=== PATIENT | female | born 1970 | race Caucasian/White ===

== ENCOUNTER → 2017-05-07 | Outpatient (CLI) | payer BC ==
[2017-05-07 18:57] LABS: Basophils # (A) 0.1 k/uL (0-0.2); Basophils % (A) 1 %; CHCM 34.5; Eosinophils # (A) 0.2 k/uL (0-0.7); Eosinophils % (A) 2 %; HCT 41.7 % (34.0-46.0); HDW 2.48; HGB 14.4 gm/dL (11.4-16.0); Luc # (Auto) 0.13; Luc % (Auto) 2; Lymphocytes % (A) 23 %; MCH 34.2 pg (25.0-35.0); MCHC 34.5 g/dL (31.0-37.0); MCV 99.2 fL (80.0-100.0); Mean Platelet Volume 9.5; Monocytes # (A) 0.5 k/uL (0-1.0); Monocytes % (A) 6 %; Neutrophils # (A) 5.6 k/uL (1.3-7.7); Neutrophils % (A) 66 %; RDW 13.1 % (11.5-15.5); WBC 8.4 k/uL (3.8-10.6); WBC (Perox) 8.15
[2017-05-07 19:11] LABS: ALT 28 U/L (9-52); AST 17 U/L (14-36); Alkaline Phosphatase 67 U/L (38-126); Anion Gap 10 mmol/L; Blood Urea Nitrogen 10 mg/dL (7-17); Calcium 9.5 mg/dL (8.4-10.2); Carbon Dioxide 25 mmol/L (22-30); Chloride 104 mmol/L (98-107); Cholesterol 226 mg/dL (<200); Glucose 85 mg/dL (74-99); HDL Cholesterol 53 mg/dL (40-60); Non-African American GFR(MDRD) >60 (>60 ml/min/1.73 sqM); Potassium 4.3 mmol/L (3.5-5.1); Sodium 139 mmol/L (137-145); Total Bilirubin 0.8 mg/dL (0.2-1.3); Total Protein 6.9 g/dL (6.3-8.2); Triglycerides 300 mg/dL (<150)
[2017-05-07 22:46] LABS: Hemoglobin A1C 5.3 % (4.2-6.1)
== END ==
LOC: MMGSC 08:58
PROVIDERS: ATTEND Family Medicine
DX: Z00.00 Encounter for general adult medical examination without abnormal findings (principal); Z83.3 Family history of diabetes mellitus
CPT/HCPCS: 36415; 80053; 80061; 82306; 83036; 84439; 84443; 85025

== ENCOUNTER → 2017-08-23 | Outpatient (CLI) | payer BC | LOC: MMGSC 10:27 | PROVIDERS: ATTEND Family Medicine | DX: E03.9 Hypothyroidism, unspecified (principal) | CPT/HCPCS: 36415; 84439; 84443 ==

== ENCOUNTER → 2020-09-01 | Outpatient (CLI) | payer BC | END | disposition home or self-care (01) | LOC: LABWHC1 15:07 | PROVIDERS: ATTEND Family Medicine | DX: Z20.828 Contact with and (suspected) exposure to other viral communicable diseases (principal) | CPT/HCPCS: U0003; C9803 ==

== ENCOUNTER 2025-04-13 07:45 | Observation (INO) | payer BC ==
--- NOTE | 2025-04-13 08:10 | ED ---
General Adult HPI - General Chief complaint: Chest Pain Stated complaint: Chest pain/SOB Time Seen by Provider: 04/13/25 07:53 Source: patient Mode of arrival: ambulatory Limitations: no limitations - History of Present Illness Initial comments: Dictation was produced using [employer] dictation software. please excuse any grammatical, word or spelling errors. Chief Complaint: 55-year-old female presents emergency department chest pain History of Present Illness: Patient 55-year-old female no significant comorbidities presents emergency department with pressure-like sensation to the left anterior chest that radiates down the left upper extremity. Denies any associate shortness of breath. Pain is not worse with deep respiration. No history of DVT or blood clots., Primary care doctor felt that her symptoms were secondary to anxiety. Patient [place] any cardiac history. Denies any family history of cardiac history. No tobacco use. Denies any history of hypertension diabetes or high cholesterol. The ROS documented in this emergency department record has been reviewed and confirmed by me. Those systems with pertinent positive or negative responses have been documented in the HPI. All other systems are other negative and/or noncontributory. - Related Data Home Medications Medication Instructions Recorded Confirmed Multivitamins, Thera [Multivitamin 1 tab PO DAILY 04/13/25 04/13/25 (formulary)] Thyroid,Pork [Thyroid] 15 mg PO DAILY 04/13/25 04/13/25 estradioL [Aminata (Twice Weekly) 1 patch TRANSDERM MOTH 04/13/25 04/13/25 0.1 mg Patch] hydrOXYzine HCL [Atarax] 25 mg PO TID 04/13/25 04/13/25 Allergies Allergy/AdvReac Type Severity Reaction Status Date / Time hydromorphone [From Dilaudid] Allergy Dyspnea/Low Verified 04/13/25 09:52 BP morphine AdvReac Nausea & Verified 04/13/25 09:52 Vomiting progesterone AdvReac Dizzy/Heada Verified 04/13/25 09:53 edward Review of Systems ROS Statement: Those systems with pertinent positive or pertinent negative responses have been documented in the HPI. ROS Other: All systems not noted in ROS Statement are negative. Past Medical History Past Medical History: No Reported History Past Surgical History: Hysterectomy, Orthopedic Surgery Past Psychological History: Anxiety Smoking Status: Never smoker Past Alcohol Use History: Occasional Past Drug Use History: None Reported General Exam - General Exam Comments Initial Comments: PHYSICAL EXAM: General Impression: Alert and oriented x3, not in acute distress HEENT: Normocephalic atraumatic, extra-ocular movements intact, pupils equal and reactive to light bilaterally, mucous membranes moist. Cardiovascular: Heart regular rate and rhythm Chest: Able to complete full sentences, no retractions, no tachypnea Abdomen: abdomen soft, non-tender, non-distended, no organomegaly Musculoskeletal: Pulses present and equal in all extremities, no peripheral edema Motor: no focal deficits noted Neurological: CN II-XII grossly intact, no focal motor or sensory deficits noted Skin: Intact with no visualized rashes Psych: Normal affect and mood Limitations: no limitations Course Vital Signs 04/13/25 04/13/25 04/13/25 07:48 08:18 09:23 Temperature 98.8 F Pulse Rate 84 77 78 Pulse Rate [ 84 Radiologist Diagnostic ] Respiratory 18 18 20 Rate Blood Pressure 162/89 148/96 130/68 O2 Sat by Pulse 97 95 97 Oximetry EKG Findings - EKG Comments: EKG Findings:: My EKG interpretation: Ventricular rate 86, sinus rhythm, WI 175, QRS 92, QTc 408. No WI prolongation, no QTC prolongation, no ST or T-wave changes noted. EKGOverall, this EKG is unremarkable Medical Decision Making - Medical Decision Making Was pt. sent in by a medical professional or institution (, PA, NEWSPAPER CARRIER, urgent care, hospital, or jail...) When possible be specific @ -No Did you speak to anyone other than the patient for history (EMS, parent, family, police, friend...)? What history was obtained from this source @ -No Did you review nursing and triage notes (agree or disagree)? Why? @ -I reviewed and agree with nursing and triage notes Were old charts reviewed (outside hosp., previous admission, EMS record, old EKG, old radiological studies, urgent care reports/EKG's, jail records)? Report findings @ -No old charts were reviewed Differential Diagnosis (chest pain, altered mental status, abdominal pain women, abdominal pain men, vaginal bleeding, musculoskeletal, weakness, fever, dyspnea, syncope, headache, dizziness, GI bleed, back pain, seizure, CVA, palpatations, mental health)? @ -Differential Chest Pain: Stable Angina, Unstable Angina, STEMI, NSTEMI Aortic Dissection, Pneumothorax, Musculoskeletal, Esophageal Spasm GERD, Cholecystitis, Pancreatitis, Zoster, this is not meant to be an all-inclusive list. EKG interpreted by me (3pts min.). @ -See above X-rays interpreted by me (1pt min.). @ -Chest x-ray is nonacute CT interpreted by me (1pt min.). @ -None done U/S interpreted by me (1pt. min.). @ -None done What testing was considered but not performed or refused? (CT, X-rays, U/S, labs)? Why? @ -None What meds were considered but not given or refused? Why? @ -None Was smoking cessation discussed for >3mins.? @ -No Were there social determinants of health that impacted care today? How? (Homelessness, low income, unemployed, alcoholism, drug addiction, transpo rtation, low edu. Level, literacy, decrease access to med. care, fdc, rehab)? @ -No Was there de-escalation of care discussed even if they declined (Discuss DNR or withdrawal of care, Hospice)? DNR status @ -No What co-morbidities impacted this encounter? (DM, HTN, Smoking, COPD, CAD, Cancer, CVA, ARF, Chemo, Hep., AIDS, mental health diagnosis, sleep apnea, morbid obesity)? @ -None Was patient admitted / discharged? Hospital course, mention meds given and route, prescriptions, significant lab abnormalities, going to OR and other pertinent info. @ -55-year-old female atypical chest pain typical features. Vital signs upon arrival are within acceptable limits. Laboratory evaluation obtained. Troponin negative. Rest of labs unremarkable. EKG is negative. Patient does have significant risk factors will be admitted observation cardiology consultation given aspirin nitroglycerin. Case discussed with hospitalist for admission Did you discuss the management of the patient with other professionals (professionals i.e. , PA, NEWSPAPER CARRIER, lab, RT, psych nurse, oncology social work, revenue officer, teacher, sergeant of officers, case advocate)? Give summary @ -See above Was critical care preformed (if so, how long)? @ -No Undiagnosed new problem with uncertain prognosis? @ -No Drug Therapy requiring intensive monitoring for toxicity (Heparin, Nitro, Insulin, Cardizem)? @ -No Were any procedures done? @ -No Diagnosis/symptom? Acute, or Chronic, or Acute on Chronic? Uncomplicated (without systemic symptoms) or Complicated (systemic symptoms)? @ -Chest pain Side effects of treatment? @ -No Exacerbation, Progression, or Severe Exacerbation? @ -No Poses a threat to life or bodily function? How? (Chest pain, USA, MS, pneumonia, PE, COPD, DKA, ARF, appy, cholecystitis, CVA, Diverticulitis, Homicidal, Suicidal, threat to staff... and all critical care pts) @ -Yes - Lab Data Result diagrams: 04/13/25 08:26 04/13/25 08:26 Lab Results 04/13/25 04/13/25 04/13/25 Range/Units 08:26 08:26 08:26 WBC 7.17 (4.50-10.00) 10*3/uL RBC 4.23 (4.10-5.20) 10*6/uL Hgb 14.2 (12.0-15.0) g/dL Hct 39.6 (37.2-46.3) % MCV 93.6 (80.0-97.0) fL MCH 33.6 H (27.0-32.0) pg MCHC 35.9 (32.0-37.0) g/dL Plt Count 304 (140-440) 10*3/uL MPV 9.4 L (9.5-12.2) fL Immature Gran % (Auto) 0.1 % Neutrophils % 58.0 % Lymphocytes % 31.0 % Monocytes % 8.1 % Eosinophils % 1.8 % Basophils % 1.0 % Immature Gran # 0.01 (0.00-0.04) 10*3/uL Neutrophils # 4.16 (1.80-7.70) 10*3/uL Lymphocytes # 2.22 (0.90-5.00) 10*3/uL Monocytes # 0.58 (0.20-1.00) 10*3/uL Eosinophils # 0.13 (0.04-0.35) 10*3/uL Basophils # 0.07 (0.00-0.10) 10*3/uL PT 11.4 (10.0-12.5) sec INR 1.0 (<1.2) APTT 24.0 (22.0-30.0) sec D-Dimer 0.21 (<0.60) mg/L FEU Sodium 137 (137-145) mmol/L Potassium 3.8 (3.5-5.1) mmol/L Chloride 105 (98-107) mmol/L Carbon Dioxide 25 (22-30) mmol/L Anion Gap 7 mmol/L BUN 11 (7-17) mg/dL Creatinine 0.53 (0.52-1.04) mg/dL Est GFR (CKD-EPI)AfAm >90 (>60 ml/min/1.73 sqM) Est GFR (CKD-EPI)NonAf >90 (>60 ml/min/1.73 sqM) Glucose 101 H (74-99) mg/dL Calcium 9.6 (8.4-10.2) mg/dL Magnesium 1.8 (1.6-2.3) mg/dL Total Bilirubin 1.2 (0.2-1.3) mg/dL AST 25 (14-36) U/L ALT 28 (4-34) U/L Alkaline Phosphatase 66 (38-126) U/L Troponin I (0.000-0.034) ng/mL Total Protein 7.0 (6.3-8.2) g/dL Albumin 4.5 (3.5-5.0) g/dL 04/13/25 Range/Units 08:26 WBC (4.50-10.00) 10*3/uL RBC (4.10-5.20) 10*6/uL Hgb (12.0-15.0) g/dL Hct (37.2-46.3) % MCV (80.0-97.0) fL MCH (27.0-32.0) pg MCHC (32.0-37.0) g/dL Plt Count (140-440) 10*3/uL MPV (9.5-12.2) fL Immature Gran % (Auto) % Neutrophils % % Lymphocytes % % Monocytes % % Eosinophils % % Basophils % % Immature Gran # (0.00-0.04) 10*3/uL Neutrophils # (1.80-7.70) 10*3/uL Lymphocytes # (0.90-5.00) 10*3/uL Monocytes # (0.20-1.00) 10*3/uL Eosinophils # (0.04-0.35) 10*3/uL Basophils # (0.00-0.10) 10*3/uL PT (10.0-12.5) sec INR (<1.2) APTT (22.0-30.0) sec D-Dimer (<0.60) mg/L FEU Sodium (137-145) mmol/L Potassium (3.5-5.1) mmol/L Chloride (98-107) mmol/L Carbon Dioxide (22-30) mmol/L Anion Gap mmol/L BUN (7-17) mg/dL Creatinine (0.52-1.04) mg/dL Est GFR (CKD-EPI)AfAm (>60 ml/min/1.73 sqM) Est GFR (CKD-EPI)NonAf (>60 ml/min/1.73 sqM) Glucose (74-99) mg/dL Calcium (8.4-10.2) mg/dL Magnesium (1.6-2.3) mg/dL Total Bilirubin (0.2-1.3) mg/dL AST (14-36) U/L ALT (4-34) U/L Alkaline Phosphatase (38-126) U/L Troponin I <0.012 (0.000-0.034) ng/mL Total Protein (6.3-8.2) g/dL Albumin (3.5-5.0) g/dL Disposition Clinical Impression: Chest pain Disposition: ADMITTED IP TO THIS HOSP Condition: Fair Referrals: Ila Pimentel MD [Primary Care Provider] - 1-2 days Decision Time: 09:57
[2025-04-13 08:46] LABS: Basophils # (A) 0.07 10*3/uL (0.00-0.10); Basophils % (A) 1.0 %; Eosinophils # (A) 0.13 10*3/uL (0.04-0.35); Eosinophils % (A) 1.8 %; HCT 39.6 % (37.2-46.3); HGB 14.2 g/dL (12.0-15.0); Lymphocytes # (A) 2.22 10*3/uL (0.90-5.00); Lymphocytes % (A) 31.0 %; MCH 33.6 pg (27.0-32.0); MCHC 35.9 g/dL (32.0-37.0); MCV 93.6 fL (80.0-97.0); Monocytes # (A) 0.58 10*3/uL (0.20-1.00); Monocytes % (A) 8.1 %; Neutrophils # (A) 4.16 10*3/uL (1.80-7.70); Neutrophils % (A) 58.0 %; Platelet Count 304 10*3/uL (140-440); RBC 4.23 10*6/uL (4.10-5.20); RDW 12.0 % (11.5-14.5); WBC 7.17 10*3/uL (4.50-10.00)
[2025-04-13 09:02] LABS: ALT 28 U/L (4-34); AST 25 U/L (14-36); African American GFR (CKD) >90 (>60 ml/min/1.73 sqM); Albumin 4.5 g/dL (3.5-5.0); Alkaline Phosphatase 66 U/L (38-126); Anion Gap 7 mmol/L; Blood Urea Nitrogen 11 mg/dL (7-17); Calcium 9.6 mg/dL (8.4-10.2); Carbon Dioxide 25 mmol/L (22-30); Chloride 105 mmol/L (98-107); Glucose 101 mg/dL (74-99); Magnesium 1.8 mg/dL (1.6-2.3); Non-African American GFR(CKD) >90 (>60 ml/min/1.73 sqM); Potassium 3.8 mmol/L (3.5-5.1); Sodium 137 mmol/L (137-145); Total Protein 7.0 g/dL (6.3-8.2)
[2025-04-13 09:08] LABS: INR 1.0 (<1.2); Partial Thromboplastin Time 24.0 sec (22.0-30.0); Prothrombin Time 11.4 sec (10.0-12.5)
--- NOTE | 2025-04-13 09:09 | XR ---
EXAMINATION TYPE: XR chest 2V DATE OF EXAM: 04/13/2025 9:03 AM COMPARISON: 08/29/2022 CLINICAL INDICATION: Female, 55 years old with history of Chest Pain: Shortness of breath TECHNIQUE: XR chest 2V views of the chest are obtained. FINDINGS: Scattered senescent parenchymal changes noted. Hyperinflation compatible with COPD. No evidence for infiltrate. No evidence for atelectasis. Heart size is stable. Mediastinal structures are stable and grossly unremarkable. No evidence for hilar prominence. Degenerative changes dorsal spine. IMPRESSION: 1. No evidence for acute pulmonary disease. [facility], , 04/13/2025 9:07 AM
[2025-04-13] MEDS: ASPIRIN 81 MG PO STA (10:06)
[2025-04-13] MEDS: NITROGLYCERIN SL TABS 0.4 MG TAB SUBLINGUAL STA (10:07)
[2025-04-13] MEDS ORDERED: NITROGLYCERIN SL TABS 0.4 MG TAB SUBLINGUAL PRN (11:10)
--- NOTE | 2025-04-13 12:37 | CT ---
EXAMINATION TYPE: CT chest angio for PE DATE OF EXAM: 04/13/2025 COMPARISON: None CLINICAL INDICATION: Female, 55 years old with history of pe rule out; PHH, left side chest and arm p ain, SOB or PAIN TECHNIQUE: Ct angiogram of the chest performed with with IV Contrast, patient injected with 100 ml mL of Isovue 370. MIP images are created and reviewed. CT DLP: 346.[address] CTDI: mGy Automated exposure control for dose reduction was used. FINDINGS: LUNGS: Nonspecific groundglass density throughout both lung dietrich is nonspecific however could refle ct acute inflammatory process. No mass or nodule seen. There is no pleural effusion or pneumothorax s een. The tracheobronchial tree is patent. MEDIASTINUM: There is satisfactory enhancement of the pulmonary artery and its branches, there is no CT evidence for pulmonary embolism. There are no greater than 1 cm hilar or mediastinal lymph nodes. No pericardial effusion is seen. HEART: Size within normal limits. No significant coronary artery calcifications. OTHER: No additional significant abnormality is seen. IMPRESSION: Nonspecific groundglass density throughout both lung dietrich is nonspecific however could reflect acut e inflammatory process. Follow-up recommendations for incidental pulmonary nodules are per [employer] or [employer]. [facility], , 04/13/2025 12:35 PM
[2025-04-13] MEDS ORDERED: hydrOXYzine HCL 25 MG TAB PO PRN (12:54)
--- NOTE | 2025-04-13 17:25 | P.HPIM ---
History of Present Illness H&P Date: 04/13/25 History of present illness; Patient is a 55-year-old female with hypothyroidism and anxiety taking hormonal replacement therapy who presents with chest pain. She states that pain began and has been worsening since she states the pain is dull left lateral chest wall pain. Pain is worse when lying down and intermittently worse with deep breathing. She states pain radiates down her left neck with a pressure- like sensation down to her hands. During this time she has taken hydroxyzine for anxiety as recommended by her PCP which has somewhat improved her symptoms. She has had several panic attacks recently. She has some associated intermittent shortness of breath. She denies palpitations, diaphoresis, immobilization. She denies fever, cough, abdominal pain, dizziness, dysuria. Spoke with the ER physician, patient admission was accepted by internal medicine service for treatment. REVIEW OF SYSTEMS: Pertinent positives and negatives noted in HPI. PHYSICAL EXAMINATION: VITAL SIGNS: Reviewed GENERAL: Resting comfortably in bed. Obese. EYES: PERRL, no scleral injection or icterus. HENT: Normocephalic, atraumatic, hearing grossly intact, moist mucous membranes. CARDIOVASCULAR: S1 and S2 present. No murmurs, rubs, or gallops. PULMONARY: Chest is clear to auscultation, no wheezing, rhonchi, or crackles. ABDOMEN: Soft, nontender, generalized mild tenderness. No palpable organomegaly. NEUROLOGICAL: Alert and oriented. Gross neurological examination with no appare nt focal deficits. MSK: Central chest wall and left chest wall tenderness. EXTREMITIES: No pedal edema. SKIN: No apparent rashes. ER FINDINGS: Labs significant for CBC unremarkable, D-dimer 0.21, CMP unremarkable, troponin <0.012 X3 EKG independently interpreted showed sinus rhythm, left axis deviation heart rate of 86, QTc 408, no ST segment elevation or depression seen, no T-wave inversions seen. Chest x-ray done independently interpreted showed no acute cardiopulmonary process. CT chest angiogram with findings of nonspecific groundglass density throughout both lung dietrich is nonspecific however could reflect acute inflammatory process ASSESSMENT AND PLAN: In summary, patient is a 55-year-old female with hypothyroidism and anxiety taking hormonal replacement therapy who presents with chest pain. #Atypical Chest pain #Dyspnea #Inflammatory versus interstitial lung disease - Troponin <0.[address] angiogram, no pulmonary embolism, nonspecific groundglass appearance bilaterally continue cardiac monitoring - Ordered TSH with reflex T4, Lipid panel - Given aspirin 325, start 81mg qd - Cardiology consulted Pulmonology consulted Chronic Medical Conditions: HRT, hypothyroidism -Resume home medications DVT ppx: Subq Lovenox 40 meq daily Code status: Full code F: P.o. E: Replete as needed N: Heart healthy diet A: Ambulatory Anticipated discharge time and place: 1 to 2 days, home Christoph Clements MD Internal Medicine Resident, PGY1 Dictation was produced using [employer] dictation software. Please excuse any grammatical, word or spelling errors. I saw and evaluated the patient during the griffith and critical portions of this encounter, and discussed the case in detail with the resident author of this note, I agree with the Assessment and Plan, and my changes, if any, are highlighted in blue. Past Medical History Past Medical History: No Reported History Past Surgical History: Hysterectomy, Orthopedic Surgery Past Psychological History: Anxiety Smoking Status: Never smoker Past Alcohol Use History: Occasional Past Drug Use History: None Reported Medications and Allergies Home Medications Medication Instructions Recorded Confirmed Type Multivitamins, Thera [Multivitamin 1 tab PO DAILY 04/13/25 04/13/25 History (formulary)] Thyroid,Pork [Thyroid] 15 mg PO DAILY 04/13/25 04/13/25 History estradioL [Aminata (Twice Weekly) 1 patch TRANSDERM MOTH 04/13/25 04/13/25 History 0.1 mg Patch] hydrOXYzine HCL [Atarax] 25 mg PO TID 04/13/25 04/13/25 History Allergies Allergy/AdvReac Type Severity Reaction Status Date / Time hydromorphone [From Dilaudid] Allergy Dyspnea/Low Verified 04/13/25 09:52 BP morphine AdvReac Nausea & Verified 04/13/25 09:52 Vomiting progesterone AdvReac Dizzy/Heada Verified 04/13/25 09:53 edward Physical Exam Osteopathic Statement: *. No significant issues noted on an osteopathic structural exam other than those noted in the History and Physical/Consult. Vitals: Vital Signs Temp Pulse Pulse Resp BP Pulse Ox 04/13/25 10:06 70 20 133/89 96 04/13/25 09:23 78 20 130/68 97 04/13/25 08:18 77 84 18 148/96 95 04/13/25 07:48 98.8 F 84 18 162/89 97 Intake and Output 04/12/25 04/13/25 04/13/25 22:59 06:59 14:59 Other: Weight 86.183 kg Results CBC & Chem 7: 04/13/25 08:26 04/13/25 08:26 Labs: Abnormal Lab Results - Last 24 Hours (Table) 04/13/25 04/13/25 Range/Units 08:26 08:26 MCH 33.6 H (27.0-32.0) pg MPV 9.4 L (9.5-12.2) fL Glucose 101 H (74-99) mg/dL
[2025-04-13] MEDS ORDERED: ACETAMINOPHEN TAB 325 MG TAB PO PRN (18:02)
[2025-04-13] MEDS: ALPRAZolam 0.5 MG TAB PO SCH (22:04)
--- NOTE | 2025-04-14 05:06 | P.CNPUL ---
History of Present Illness Consult date: 04/14/25 Requesting physician: Christoph Clements Reason for consult: abnormal CXR/CT Chief complaint: Chest pain History of present illness: Patient is a 55-year-old female presented the emergency department yesterday morning with left-sided chest pain radiating to her jaw and left arm. Intermittent since , and originally noted while brushing her teeth. Workup in the emergency department essentially unremarkable for ACS. Chest CT angiogram showing nonspecific groundglass opacities throughout both lung dietrich. No lymphadenopathy. Could reflect acute inflammatory process. No prior CTs for comparison. CBC unremarkable for leukocytosis. CMP also unremarkable, electrolytes WDL, creatinine 0.53, glucose 101. EKG normal sinus rhythm, rate 86 bpm, no acute ischemic changes noted. Troponins less than 0.012 x 3. Patient being seen on observation unit. She is resting comfortably on room air. Denies any shortness of breath. Denies any coughing. Denies any fevers or chills. Denies any known sick contacts, travel, or recent outpatient treatments for URI or pneumonias. Vital signs are stable. Review of Systems Constitutional: Denies chills, Denies fatigue, Denies fever, Denies night sweats, Denies poor appetite, Denies weight gain, Denies weight loss Ears, nose, mouth and throat: Denies headache, Denies nasal congestion, Denies nasal discharge, Denies odynophagia, Denies post-nasal drip, Denies sinus pain, Denies sinus pressure, Denies sore throat Cardiovascular: Reports palpitations, Denies chest pain, Denies leg edema, Denies lightheadedness, Denies orthopnea, Denies paroxysmal nocturnal dyspnea, Denies syncope Respiratory: Denies congestion, Denies cough, Denies dyspnea, Denies hemoptysis, Denies pain on inspiration Gastrointestinal: Denies abdominal pain, Denies diarrhea, Denies nausea, Denies vomiting Genitourinary: Denies dysuria Musculoskeletal: Denies limitation of motion Integumentary: Denies rash Neurological: Denies headaches, Denies seizures, Denies syncope Psychiatric: Reports anxiety, Denies depression Past Medical History Past Medical History: Thyroid Disorder History of Any Multi-Drug Resistant Organisms: None Reported Past Surgical History: Hysterectomy, Orthopedic Surgery Smoking Status: Never smoker Medications and Allergies Home Medications Medication Instructions Recorded Confirmed Type Multivitamins, Thera [Multivitamin 1 tab PO DAILY 04/13/25 04/13/25 History (formulary)] Thyroid,Pork [Thyroid] 15 mg PO DAILY 04/13/25 04/13/25 History estradioL [Aminata (Twice Weekly) 1 patch TRANSDERM MOTH 04/13/25 04/13/25 History 0.1 mg Patch] hydrOXYzine HCL [Atarax] 25 mg PO TID 04/13/25 04/13/25 History Allergies Allergy/AdvReac Type Severity Reaction Status Date / Time hydromorphone [From Dilaudid] Allergy Dyspnea/Low Verified 04/13/25 09:52 BP morphine AdvReac Nausea & Verified 04/13/25 09:52 Vomiting progesterone AdvReac Dizzy/Heada Verified 04/13/25 09:53 edward Physical Exam Vitals: Vital Signs Temp Pulse Pulse Resp BP BP Pulse Ox 04/14/25 02:00 97.8 F 72 18 120/83 98 04/13/25 20:00 98.9 F 77 12 115/78 96 04/13/25 18:45 98.1 F 78 117/77 97 04/13/25 13:50 97.9 F 72 109/67 97 04/13/25 11:36 73 20 120/70 97 04/13/25 10:06 70 20 133/89 96 04/13/25 09:23 78 20 130/68 97 04/13/25 08:18 77 84 18 148/96 95 04/13/25 07:48 98.8 F 84 18 162/89 97 Intake and Output 04/13/25 04/13/25 04/14/25 14:59 22:59 06:59 Other: # Voids 2 Weight 86.183 kg 86.183 kg GENERAL EXAM: Alert, 55-year-old well-nourished female, comfortable in no apparent distress. HEAD: Normocephalic and atraumatic EYES: Normal reaction of pupils, equal size. NOSE: Clear with pink turbinates. THROAT: No erythema or exudates. NECK: No masses, no JVD. CHEST: No chest wall deformity. LUNGS: Equal air entry with no crackles, wheeze, rhonchi or dullness. On room air. No conversational dyspnea or accessory muscle use.. CVS: S1 and S2 normal with no audible murmur, regular rhythm. No extra heart sounds ABDOMEN: No hepatosplenomegaly, active bowel sounds, no guarding or rigidity. SPINE: No scoliosis or deformity SKIN: No rashes CENTRAL NERVOUS SYSTEM: No focal deficits, tone is normal in all 4 extremities. EXTREMITIES: There is no peripheral edema, clubbing, or cyanosis. Peripheral pulses are intact. Results - Laboratory Findings CBC and BMP: 04/13/25 08:26 04/13/25 08:26 PT/INR, D-dimer PT 11.4 sec (10.0-12.5) 04/13/25 08: INR 1.0 (<1.2) 04/13/25 08: D-Dimer 0.21 mg/L FEU (<0.60) 04/13/25 08:26 Abnormal lab findings: Abnormal Labs 04/13/25 04/13/25 08:26 08:26 MCH 33.6 H MPV 9.4 L Glucose 101 H - Diagnostic Findings Chest x-ray: image reviewed CT scan - chest: image reviewed Assessment and Plan Assessment: Groundglass opacities, nonspecific finding, could represent variety of inflammatory processes, atypical bacterial pneumonia, viral pneumonias, etc. Atypical chest pain, ACS felt to be unlikely History of hypothyroidism Anxiety Plan: Patient's medications, labs, imaging reviewed CT findings to be reviewed with Dr. Barksdale Additional labs pending Patient denies any pulmonary complaints Likely could be followed up on an outpatient basis I have personally seen and examined the patient, performed the documentation and the assessment and plan as written. Number of minutes spent on the visit:20 Time with Patient: Greater than 30
[2025-04-14 05:33] LABS: African American GFR (CKD) >90 (>60 ml/min/1.73 sqM); Anion Gap 8 mmol/L; Blood Urea Nitrogen 9 mg/dL (7-17); Calcium 9.3 mg/dL (8.4-10.2); Carbon Dioxide 25 mmol/L (22-30); Chloride 103 mmol/L (98-107); Glucose 96 mg/dL (74-99); Non-African American GFR(CKD) >90 (>60 ml/min/1.73 sqM); Potassium 4.0 mmol/L (3.5-5.1); Sodium 136 mmol/L (137-145)
[2025-04-14 07:35] VITALS: BP 127/78; PULSE 80; RESP 15; TEMP 97.9
[2025-04-14 08:37] LABS: RSV Not Detected (Not Detectd)
[2025-04-14] MEDS ORDERED: ASPIRIN 325 MG TAB PO SCH (09:00)
--- NOTE | 2025-04-14 09:05 | P.CRDCN ---
History of Present Illness History of present illness: HISTORY OF PRESENT ILLNESS: This is a 55-year-old female with a past medical history significant for hypothyroidism. Patient does not follow with a blanket folder. We have been asked to see the patient in consultation for chest pain. Patient examined at the bedside. Patient states she has been having palpitations since . She states that these occur randomly and are not correlated with exertion. She states she has also been having some discomfort in her left arm. She denies having any significant chest pain however she states this morning her chest feels sore like she had been working out. DIAGNOSTICS: - EKG reveals sinus mechanism with no signs of acute ischemia. - Chest xray negative for acute process - Laboratory data: WBC 7.17. Hemoglobin 14.2. Platelet count 304. D-dimer 0.21. Sodium 136. Potassium 4.0. BUN 9. Creatinine 0.43. Troponin negative x 3. TSH 1.780 - Current home cardiac medications include none. - No previous echocardiogram, stress test, or cardiac catheterization available in EMR for review REVIEW OF SYSTEMS: At the time of my exam: CONSTITUTIONAL: Denies fever or chills. HEENT: Denies blurred vision, vision changes, or eye pain. Denies hemoptysis CARDIOVASCULAR: Denies chest pain. Denies orthopnea. Denies PND. Denies palpitations RESPIRATORY: Denies shortness of breath. GASTROINTESTINAL: Denies abdominal pain. Denies nausea or vomiting. HEMATOLOGIC: Denies bleeding disorders. GENITOURINARY: Denies any blood in urine. SKIN: Denies pruitis. Denies rash. PHYSICAL EXAM: VITAL SIGNS: Reviewed. GENERAL: Well-developed in no acute distress. HEENT: Head is normocephalic. Pupils are equal, round. Sclerae anicteric. Mucous membranes of the mouth are moist. Neck supple. No JVD or thyromegaly LUNGS: Respirations even and unlabored. Lungs essentially clear to auscultation bilaterally. HEART: Regular rate and rhythm. S1 and S2 heard. ABDOMEN: Soft. Nondistended. Nontender. EXTREMITIES: Normal range of motion. No clubbing or cyanosis. Peripheral pulses intact. No lower extremity edema NEUROLOGIC: Awake and alert. Oriented x 3. ASSESSMENT: Palpitations Chest pain, atypical, troponin negative x 3 History of hypothyroidism Obesity: BMI 33.7 PLAN: An acute coronary event has been ruled out Obtain 2D echo to assess cardiac structure and function Patient to undergo stress echocardiogram today If negative, she may be discharged home from a cardiac standpoint Will consider outpatient event monitor Patient to follow-up with Dr. Vazquez Nurse practitioner note has been reviewed by physician. Signing provider agrees with the documented findings, assessment, and plan of care documented by CAN FILLER as a scribe. Past Medical History Past Medical History: Thyroid Disorder History of Any Multi-Drug Resistant Organisms: None Reported Past Surgical History: Hysterectomy, Orthopedic Surgery Smoking Status: Never smoker Medications and Allergies Home Medications Medication Instructions Recorded Confirmed Type Multivitamins, Thera [Multivitamin 1 tab PO DAILY 04/13/25 04/13/25 History (formulary)] Thyroid,Pork [Thyroid] 15 mg PO DAILY 04/13/25 04/13/25 History estradioL [Aminata (Twice Weekly) 1 patch TRANSDERM MOTH 04/13/25 04/13/25 History 0.1 mg Patch] hydrOXYzine HCL [Atarax] 25 mg PO TID 04/13/25 04/13/25 History Allergies Allergy/AdvReac Type Severity Reaction Status Date / Time hydromorphone [From Dilaudid] Allergy Dyspnea/Low Verified 04/13/25 09:52 BP morphine AdvReac Nausea & Verified 04/13/25 09:52 Vomiting progesterone AdvReac Dizzy/Heada Verified 04/13/25 09:53 edward Physical Exam Vitals: Vital Signs Temp Pulse Pulse Resp BP BP Pulse Ox 04/14/25 07:00 97.9 F 80 15 127/78 99 04/14/25 02:00 97.8 F 72 18 120/83 98 04/13/25 20:00 98.9 F 77 12 115/78 96 04/13/25 18:45 98.1 F 78 117/77 97 04/13/25 13:50 97.9 F 72 109/67 97 04/13/25 11:36 73 20 120/70 97 04/13/25 10:06 70 20 133/89 96 04/13/25 09:23 78 20 130/68 97 Intake and Output 04/13/25 04/14/25 04/14/25 22:59 06:59 14:59 Other: # Voids 2 1 Weight 86.183 kg Results 04/13/25 08:26 04/14/25 05:08 Cardiac Enzymes 04/13/25 04/13/25 04/13/25 Range/Units 08:26 08:26 11:18 AST 25 (14-36) U/L Troponin I <0.012 <0.012 (0.000-0.034) ng/mL 04/13/25 Range/Units 14:13 AST (14-36) U/L Troponin I <0.012 (0.000-0.034) ng/mL Coagulation 04/13/25 Range/Units 08:26 PT 11.4 (10.0-12.5) sec APTT 24.0 (22.0-30.0) sec Comprehensive Metabolic Panel 04/13/25 04/14/25 Range/Units 08:26 05:08 Sodium 137 136 L (137-145) mmol/L Potassium 3.8 4.0 (3.5-5.1) mmol/L Chloride 105 103 (98-107) mmol/L Carbon Dioxide 25 25 (22-30) mmol/L BUN 11 9 (7-17) mg/dL Creatinine 0.53 0.43 L (0.52-1.04) mg/dL Glucose 101 H 96 (74-99) mg/dL Calcium 9.6 9.3 (8.4-10.2) mg/dL AST 25 (14-36) U/L ALT 28 (4-34) U/L Alkaline Phosphatase 66 (38-126) U/L Total Protein 7.0 (6.3-8.2) g/dL Albumin 4.5 (3.5-5.0) g/dL Current Medications Generic Name Dose Route Start Last Admin Trade Name Freq PRN Reason Stop Dose Admin Acetaminophen 650 mg 04/13/25 18:02 Acetaminophen Tab 325 Mg Tab PO Q4HR PRN Fever and/ or Pain Aspirin 81 mg 04/14/25 09:00 Aspirin 81 Mg PO DAILY [facility] Enoxaparin Sodium 40 mg 04/14/25 09:00 Enoxaparin 40 Mg/0.4 Ml Syringe SQ DAILY [facility] Hydroxyzine HCl 25 mg 04/13/25 12:54 Hydroxyzine Hcl 25 Mg Tab PO TID PRN Anxiety Nitroglycerin 0.4 mg 04/13/25 11:10 Nitroglycerin Sl Tabs 0.4 Mg Tab SUBLINGUAL Q5M PRN Chest Pain Thyroid 15 mg 04/14/25 09:00 Thyroid, Pork 30 Mg Tab PO DAILY [facility] Intake and Output 04/13/25 04/14/25 04/14/25 22:59 06:59 14:59 Other: # Voids 2 1 Weight 86.183 kg 04/13/25 08:26 04/14/25 05:08
[2025-04-14] MEDS: ENOXAPARIN 40 MG/0.4 ML SYRINGE SQ SCH (09:16)
[2025-04-14] MEDS: ASPIRIN 81 MG PO SCH (09:16)
[2025-04-14] MEDS: THYROID, PORK 30 MG TAB PO SCH (09:16)
[2025-04-14 15:22] LABS: Cholesterol 256.00 mg/dL (0.00-200.00); HDL Cholesterol 44.00 mg/dL (40.00-60.00); LDL Cholesterol,Calculated 160.8 mg/dL (0.0-131.0); Triglycerides 256.00 mg/dL (0.00-149.00); VLDL Calculation 51.20 mg/dL (5.00-40.00)
--- NOTE | 2025-04-14 16:57 | P.DS ---
Providers Date of admission: 04/13/25 11:11 Expected date of discharge: 04/14/25 Attending physician: Gerry Taylor MD Consults: 04/13/25 11:10 Consult Physician Urgent Consulting Provider: Demond Brewster Consult Reason/Comments: chest pain Do you want consulting provider notified?: Yes 04/13/25 12:52 Consult Physician Routine Consulting Provider: Antonia Serrano Consult Reason/Comments: dyspnea w/ groundglass opacities Do you want consulting provider notified?: Yes Primary care physician: [facility] Course: #Atypical Chest pain #Dyspnea #Inflammatory versus interstitial lung disease HRT, hypothyroidism Hospital Course: Patient is a 55-year-old female with hypothyroidism and anxiety taking hormonal replacement therapy who presents with chest pain. ER FINDINGS: Labs significant for CBC unremarkable, D-dimer 0.21, CMP unremarkable, troponin <0.012 X3 EKG independently interpreted showed sinus rhythm, left axis deviation heart rate of 86, QTc 408, no ST segment elevation or depression seen, no T-wave inversions seen. Chest x-ray done independently interpreted showed no acute cardiopulmonary process. CT chest angiogram with findings of nonspecific groundglass density throughout both lung dietrich is nonspecific however could reflect acute inflammatory process Spoke with the ER physician, patient admission was accepted by internal medicine service for treatment. Patient was seen by cardiology who recommended stress test, and patient underwent this test, but left AMA prior to it being read. She was also seen by pulmonology for GGO, but was not provided f/u information due to leaving AMA. Phx: Could not be completed due to leaving AMA. Patient Condition at Discharge: Good Plan - Discharge Summary New Discharge Prescriptions: No Action hydrOXYzine HCL [Atarax] 25 mg PO TID estradioL [Aminata (Twice Weekly) 0.1 mg Patch] 1 patch TRANSDERM MOTH Thyroid,Pork [Thyroid] 15 mg PO DAILY Multivitamins, Thera [Multivitamin (formulary)] 1 tab PO DAILY Discharge Medication List Multivitamins, Thera [Multivitamin (formulary)] 1 tab PO DAILY 04/13/25 [History] Thyroid,Pork [Thyroid] 15 mg PO DAILY 04/13/25 [History] estradioL [Aminata (Twice Weekly) 0.1 mg Patch] 1 patch TRANSDERM MOTH 04/13/25 [History] hydrOXYzine HCL [Atarax] 25 mg PO TID 04/13/25 [History] Follow up Appointment(s)/Referral(s): Antonia Serrano MD [STAFF PHYSICIAN] - 1 Week Ila Pimentel MD [Primary Care Provider] - 1-2 days
--- NOTE | 2025-04-15 09:46 | CA ---
Transthoracic Echo Report Name: Lu Ann Age: 55 Gender: F : 1970 Exam Date: 04/14/2025 12:26 Exam Location: [facility] Ht (in): 63 Wt (lb): 190 Ordering Physician: Babita John Attending/Referring Phys: [id number], Alvaro Artistic Director Niru Wesley RDCS Procedure CPT: Indications: CP Cardiac Hx: Technical Quality: Good Contrast 1: Total Dose (mL): Contrast 2: Total Dose (mL): MEASUREMENTS (Male / Female) Normal Values 2D ECHO LV Diastolic Diameter PLAX 4.1 cm 4.2 - 5.9 / 3.9 - 5.3 cm LV Systolic Diameter PLAX 2.9 cm IVS Diastolic Thickness 1.3 cm 0.6 - 1.0 / 0.6 - 0.9 cm LVPW Diastolic Thickness 1.2 cm 0.6 - 1.0 / 0.6 - 0.9 cm LV Relative Wall Thickness 0.6 RV Internal Dim ED PLAX 2.7 cm LA Systolic Diameter LX 3.4 cm 3.0 - 4.0 / 2.7 - 3.8 cm LV Diastolic Volume MOD BP 44.6 cm??? 67 - 155 / 56 - 104 cm??? LV Systolic Volume MOD BP 13.1 cm??? - 58 / 19 - 49 cm??? LV Ejection Fraction MOD BP 70.5 % >= 55 % LV Cardiac Index MOD BP 1277.0 cm???/min???m??? LV Diastolic Volume MOD 4C 56.0 cm??? LV Systolic Volume MOD 4C 15.8 cm??? LV Ejection Fraction MOD 4C 71.9 % LV Cardiac Index MOD 4C 1636.8 cm???/min???m??? LV Diastolic Length 4C 7.1 cm LV Systolic Length 4C 5.8 cm LV Diastolic Volume MOD 2C 33.3 cm??? LV Systolic Volume MOD 2C 10.7 cm??? LV Ejection Fraction MOD 2C 68.0 % LV Cardiac Index MOD 2C 920.3 cm???/min???m??? LV Diastolic Length 2C 6.7 cm LV Systolic Length 2C 5.6 cm LA Volume 33.4 cm??? 18 - 58 / 22 - 52 cm??? LA Volume Index 16.8 cm???/m??? 16 - 28 cm???/m??? M-MODE Aortic Root Diameter MM 2.7 cm LA Systolic Diameter MM 3.0 cm LA Ao Ratio MM 1.1 AV Cusp Separation MM 1.8 cm DOPPLER MV Area PHT 3.2 cm??? Mitral E Point Velocity 65.5 cm/s Mitral A Point Velocity 81.3 cm/s Mitral E to A Ratio 0.8 MV Deceleration Time 234.8 ms TR Peak Velocity 200.8 cm/s TR Peak Gradient 16.1 mmHg FINDINGS Left Ventricle Left ventricular ejection fraction is estimated at 55-60%. Mildly increased septal wall thickness. Mildly increased posterior wall thickness. Normal left ventricular systolic function with no obvious regional wall motion abnormalities. Right Ventricle Normal right ventricular size and function. Right ventricular systolic pressure within normal limits. Right Atrium Normal right atrial size. Left Atrium Normal left atrial size. Mitral Valve Structurally normal mitral valve. Aortic Valve Trileaflet aortic valve. No aortic valve stenosis or regurgitation. Tricuspid Valve Structurally normal tricuspid valve. Trace to mild tricuspid regurgitation. No tricuspid stenosis. Pulmonic Valve Structurally normal pulmonic valve. Trace pulmonic regurgitation. No pulmonic stenosis. Pericardium No pericardial or pleural effusion. Aorta Normal size aortic root and proximal ascending aorta. CONCLUSIONS Normal LV function Previewed by: Dr. Jair Vazquez MD (Electronically Signed) Final Date: 15 April 2025 09:46
--- NOTE | 2025-04-15 09:52 | CA ---
Stress Echo Report Lu Ann Age: 55 Gender: F : 1970 Exam Date: 04/14/2025 12:01 Exam Location: [facility] Ht (in): 63 Wt (lb): 190 Ordering Physician: Babita John Referring Physician: [id number] Automatic Nailing Machine Operator: OPAL, Technologist Procedure CPT: Indication: CP ICD-9 Codes: Rhythm: Patient History: CP,CARYL. Cardiac Medications: SEE CHART,,,,, Medications in past 24 hours: Contrast: Stress Results Protocol: Percy Total dose(mL): Exercise Duration (min:sec): Max ST Depression (mm): Angina Score: Bello Score: METS: 10.3 Resting HR: 90 Resting BP: 117 / 89 Peak HR: 149 Peak BP: 186 / 90 Max Predicted HR: 166 90 % Max Predicted HR Target HR: 141 Double Product: 38019 Stress Summary: BP Response: Reason for Termination: MAX EXERTION/TARGET HR Cardiac Symptoms: NO SYMPTOMS ECG Analysis Resting ECG: Normal sinus rhythm normal axis normal intervals Stress ECG: Patient exercised on Percy protocol for 9 and half minutes achieving 11 METS 85% of predicted maximal heart rate without chest pain or diagnostic ST segment depression Arrhythmia: Echo Analysis Resting Echo: Normal left ventricular size wall motion and systolic function Peak Echo Analysis: Normal hyperdynamic response MEASUREMENTS (Male/Female) Normal Values CONCLUSIONS Good exercise tolerance Negative stress test by EKG criteria Negative stress echo Dr. Jair Vazquez MD (Electronically Signed) Final Date: 15 April 2025 09:51
== END 2025-04-14 16:38 ==
LOC: EC 07:45 → 6NMEDSUR 11:11 → 1SOBS 11:45
PROVIDERS: ADMIT Internal Medicine; ATTEND Internal Medicine
DX: R07.89 Other chest pain (principal); R00.2 Palpitations; R06.00 Dyspnea, unspecified; E03.9 Hypothyroidism, unspecified; E66.9 Obesity, unspecified; F41.9 Anxiety disorder, unspecified; Z68.33 Body mass index [BMI] 33.0-33.9, adult; Z79.890 Hormone replacement therapy; Z53.29 Procedure and treatment not carried out because of patient's decision for other reasons; Z88.5 Allergy status to narcotic agent; Z88.8 Allergy status to other drugs, medicaments and biological substances
CPT/HCPCS: 99285; 36415; 93005; 93306; 93351; 85379; 83880; 80061; 80053; 80048; 84443; 83735; 84484; 85025; 85610; 85730; 84145; 87636; 71046; 71275; G0378 ×3; Q9967